=== PATIENT | male | born 1965 | race Caucasian/White ===

== ENCOUNTER 2017-04-01 05:54 | Inpatient (IN) ==
[2017-04-01] MEDS ORDERED: Mag Hydrox/Al Hydrox/Simeth 30 ML UDC PO PRN (06:05)
[2017-04-01] MEDS ORDERED: *HR* LORazepam 1 MG TABLET PO PRN (06:05)
[2017-04-01] MEDS ORDERED: MOM Conc 10 ML UD.LIQ PO PRN (06:05)
[2017-04-01] MEDS ORDERED: traZODone 50 MG TABLET PO PRN (06:05)
[2017-04-01] MEDS ORDERED: Haloperidol Lactate 5 MG/ML VIAL IM PRN (06:05)
[2017-04-01] MEDS ORDERED: *HR* LORazepam 2 MG/ML VIAL IM PRN (06:05)
[2017-04-01] MEDS ORDERED: Acetaminophen 325 MG TABLET PO PRN (06:05)
[2017-04-01] MEDS ORDERED: Loratadine 10 MG TABLET PO PRN (09:12)
[2017-04-01] MEDS: Gabapentin 300 MG CAPSULE PO SCH ×2 (10:00→21:41)
[2017-04-01] MEDS: risperiDONE 1 MG TABLET PO SCH ×2 (10:01→21:41)
--- NOTE | 2017-04-01 10:32 | Psychiatry History & Physical ---
Date of Encounter: 04/01/17 Time of Encounter: 09:30 History of Present Illness Patient Stated Chief Complaint: "I feel depressed and suicidal" Medicare Admission Attestation: For traditional Medicare patients the provided hospital inpatient services are reasonable and necessary and in the case of services not specified as inpatient -only under 42 CFR 419.22 (n), that they are appropriately provided as inpatient services in accordance 42 CFR 412.3. For Critical Access Hospital the patient may reasonably be expected to be discharged or transferred to a hospital within 96 hours after admission to the Critical Access Hospital. Admitted From: Direct Admit Plans for Post Hospital Care: Home History of Present Illness: Mr. Maya is a 51 year old male who is noted to have an extensive history of depression. He reported that he broke up with his girlfriend of almost a year ago and since then been noticing slow and gradual relapse of depressive symptoms which are getting worse with time. He reported that in the last few weeks his depression has gotten worse for point where he is being feeling extremely sad and hopeless helpless a motivated lost interest in pleasurable activities noticing poor energy levels and withdrawn behavior along with recurrent suicidal thoughts and ideations. He was contemplating on overdosing on pills. Since patient was not able to contract for safety and was posing a threat to himself it was decided to hospitalize him at [facility] for safety concerns. Past Med Surg Social Fam HX - Past Medical History Medical history: asthma, GERD, hyperlipidemia, hypertension, seizures - Past Psychiatric History Psychiatric history: Reports: depression, previous psychiatric hospitalization Past psychiatric history details: Patient reported that he been struggling from depression for the last 30 years. He has had 6 or 7 prior psychiatric hospitalizations at various hospitals in [place]. His last hospitalization was in [facility] more than a year ago. [facility] Family psychiatric history: Yes Family Psychiatric History Details: Sisters suffered from depression and committed suicide last year Family History of Suicide: Completed Family Suicide History Details: Patient's sister committed suicide last year - Past Surgical History Surgical History: other - Social History Smoking Status: Never smoker Smokeless Tobacco Status: Yes (Chew) Alcohol use: none Drug use: marijuana Occupational status: disabled Current living situation: Home, With Family Activity Level: Independent ambulation Recent Out of Country Travel Within the Last 8 Weeks: No Exposure or Possible Exposure to Illness During Travel: No Additional social history: Patient was born and raised in [place]. He reported good childhood. Denies any physical or sexual abuse. He is educated to ninth grade. He was in special ed classes. He is single and never been . Currently he is disabled and resides with his sister and her family. He denies any legal issues. - Family History Mother Adopted: [place]: Marsha Kenny Age: 65 Family Member Ethnicity: Non- Living Status: Still Living Hx Family Cardiac Disorders: Yes Hx Family Endocrine Disorder: Yes (Diabetic) Hx Family Musculoskeletal Disorders: Yes Medications & Allergies Benztropine [Cogentin] 1 mg PO BID 02/27/15 [History] Carvedilol 3.125 mg PO BID 02/27/15 [History] Gabapentin [Neurontin] 600 mg PO BID 02/27/15 [History] Paroxetine HCl [Paroxetine] 20 mg PO DAILY 02/27/15 [History] Pravastatin Sodium [Pravachol] 40 mg PO DAILY 02/27/15 [History] RisperiDONE [Risperdal] 2 mg PO BID 04/29/15 [History] Trazodone HCl [TraZODone] 100 mg PO HS 04/29/15 [History] Cetirizine HCl [Zyrtec] 10 mg PO DAILY PRN #0 05/01/15 [Rx] Omeprazole [PriLOSEC] 20 mg PO BIDAC #30 cap 06/27/16 [Rx] Ferrous Sulfate [Ferrous Sulfate] 325 mg PO DAILY 08/11/16 [History] Albuterol Sulfate [Ventolin Hfa] 18 gm IH PRN PRN 04/01/17 [History] 3 Allergy/AdvReac Type Severity Reaction Status Date / Time Penicillins Allergy unknown Verified 01/27/17 20:01 PER PATIENT Review of Systems Psychiatric: Reports: depression, suicidal ideation, anhedonia, difficulty concentrating, hopelessness Mental Status Exam Patient orientation: Yes Person, Yes Time, Yes Place Level of alertness: Alert Patient appearance: Unkempt, Disheveled Behavior: cooperative Psychomotor activity: Slowed Eye contact: Maintains Eye Contact Mood description: Depressed Affect description: flat, dysphoric Speech pattern: Slowed Speech volume: Soft/Quiet Thought process: Linear, Goal Oriented Thought content: Yes Suicidal ideation Perceptual disturbances: No Auditory hallucinations, No Visual hallucinations Attention span: Capable of Focused Attention Memory description: Grossly Intact Patient reliability: Reliable Historian Intelligence estimate: Below Average Judgment: Limited Exam - HEENT Head exam IM: Present: normal inspection Eye exam IM: Present: normal appearance ENT exam IM: Present: normal exam - Neurological Neurological exam IM: Present: CN II-XII intact, normal gait, oriented X3, reflexes normal, no focal deficits, strengths equal and symetr throughout. Absent: motor sensory deficit - Respiratory Respiratory exam IM: Absent: respiratory distress - GI/Abdominal GI/Abdominal exam IM: Present: normal bowel sounds, soft. Absent: mass, tenderness - Extremities Extremities exam IM: Present: normal inspection - Skin Skin exam IM: Present: normal color Results - Vital Signs Vital signs: Temp Pulse Resp BP 97.4 F L 87 16 125/82 04/01/17 09:00 04/01/17 09:00 04/01/17 09:00 04/01/17 09:00 Assessment and Plan (1) Major depressive disorder, recurrent severe without psychotic features Current visit: Yes Status: Acute Plan: Admit inpatient for safety and stabilization, Close observation, Suicide Precautions per unit protocol, Encourage participation in unit milieu, Group Therapy, Monitor sleep, Monitor appetite Additional Plan: We will increase patient's Paxil from 20 mg daily to 30 mg daily for his depression. Risks, benefits, side effects, alternatives discussed w/pt: Yes Plans for Post Hospital Care: Home Estimated Length of Stay (Days): 4
[2017-04-01] MEDS: traZODone 50 MG TABLET PO SCH (21:40)
[2017-04-01] MEDS: hydrOXYzine pamoate 25 MG CAPSULE PO PRN (21:41)
[2017-04-02] MEDS: Gabapentin 300 MG CAPSULE PO SCH ×2 (08:27→20:55)
[2017-04-02] MEDS: risperiDONE 1 MG TABLET PO SCH ×2 (08:27→20:54)
--- NOTE | 2017-04-02 10:33 | Psychiatry Progress Note ---
Date of Encounter: 04/02/17 Time of Encounter: 09:55 Subjective Interval history: Patient seen and interviewed. Started to notice improvement in his mood. Suicidal ideations subsided. He still endorsing some hopeless feelings but working on a safety plan. Patient is active on the unit and is socializing with peers and attending groups. Tolerating meds changes fairly well and denies any side effects. Overall making progress Review of Systems Psychiatric: Reports: depression, hopelessness Objective: Exam Patient orientation: Yes Person, Yes Time, Yes Place Level of alertness: Alert Patient appearance: Unkempt, Disheveled Behavior: calm, cooperative Psychomotor activity: Slowed Eye contact: Maintains Eye Contact Mood description: Depressed Affect description: congruent with mood, full range Speech pattern: Normal rate, Normal rhythm, Normal tone Speech volume: Soft/Quiet Thought process: Roxana Thought content: No Suicidal ideation, No Homicidal ideation, No Overt delusions Perceptual disturbances: No Auditory hallucinations, No Visual hallucinations Judgment: Fair Insight: Partial Results - Vital Signs Vital Signs: Temp Pulse Resp BP 98 F 71 16 130/87 04/02/17 08:55 04/02/17 08:55 04/02/17 08:55 04/02/17 08:55 Assessment and Plan (1) Major depressive disorder, recurrent severe without psychotic features Current visit: Yes Status: Acute Plan: Continue hospitalization, Close observation, Suicide Precautions per unit protocol, Encourage participation in unit milieu, Group Therapy, Monitor sleep, Monitor appetite Additional Plan: Possible discharge tomorrow if stable Risks, benefits, side effects, alternatives discussed w/pt: Yes
[2017-04-02] MEDS: traZODone 50 MG TABLET PO SCH (20:54)
[2017-04-02] MEDS: hydrOXYzine pamoate 25 MG CAPSULE PO PRN (20:55)
[2017-04-03] MEDS: Gabapentin 300 MG CAPSULE PO SCH (07:52)
[2017-04-03] MEDS: risperiDONE 1 MG TABLET PO SCH (07:53)
[2017-04-03 10:11] VITALS: BP 141/76
--- NOTE | 2017-04-03 12:38 | Discharge Summary ---
Date of Encounter: 04/03/17 Time of Encounter: 12:34 Diagnosis - Discharge Diagnosis (1) Major depressive disorder, recurrent severe without psychotic features Status: Acute Medications - Discharge Medications Prescriptions: Paroxetine [Paxil] 30 mg PO DAILY #30 tablet Atorvastatin [Lipitor] 40 mg PO DAILY 04/01/17 [History] Acetaminophen [Tylenol] 650 mg PO Q6HR PRN tablet 04/03/17 [Rx] Albuterol Sulfate [Albuterol Inhaler] 2 puff IH Q6H PRN inhaler 04/03/17 [Rx] Atorvastatin [Lipitor] 40 mg PO QPM tablet 04/03/17 [Rx] Benztropine [Cogentin] 1 mg PO BID tablet 04/03/17 [Rx] Carvedilol [Coreg] 3.125 mg PO BIDWM tablet 04/03/17 [Rx] Ferrous Sulfate 325 mg PO DAILY tablet 04/03/17 [Rx] Gabapentin [Neurontin] 600 mg PO BID capsule 04/03/17 [Rx] Loratadine [Claritin] 10 mg PO DAILY PRN tablet 04/03/17 [Rx] Omeprazole [PriLOSEC] 20 mg PO BIDAC capsule. 04/03/17 [Rx] Paroxetine [Paxil] 30 mg PO DAILY #30 tablet 04/03/17 [Rx] risperiDONE [RisperDAL] 2 mg PO BID tablet 04/03/17 [Rx] traZODone [TraZODone] 100 mg PO HS tablet 04/03/17 [Rx] 3 Allergy/AdvReac Type Severity Reaction Status Date / Time Penicillins Allergy unknown Verified 01/27/17 20:01 PER PATIENT Provider Date of admission: 04/01/17 05:54 Primary care physician: PCP NONE Discharging clinician: Patricia Velazquez Assessment and Plan - Patient/Caregiver Discharge Instructions Activity: resume usual activities as tolerated Diet: regular diet - Follow up Plan Follow up with: NONE,PCP [Primary Care Provider] - Functional capacity at discharge: independent ambulation Overall status at discharge: Stable Disposition: Home, Self-Care Hospital Course Hospital course: Mr. Maya is a 51 year old male who was admitted secondary to SI. His Paxil was increased with good clinical effect. Today client is denying SI and reports he wants to go home. According to documentation, the psychiatrist who saw him yesterday thought client might be ready to go today. According to client he was stressed out "by my exes," but states today he feels fine and "I was talking out of my mind for no reason" when he came in. Denies any further SI. Linked with services. Will be set up with appointments prior to discharge. Lives with sister and mother lives next door so he has built in family support. Has back pain that he feels is under treated but he plans to follow up with his PCP for referral to a pain specialist. 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 Fairly concrete but understands how to access mental health services. Client reports he would not hesitate to return to the hospital if he felt suicidal again. - Time Spent with Patient Total time spent providing and/or coordinating discharge services: Quality - Multiple Antipsychotics Patient discharged on 2 or more antipsychotic medications: No Procedures - Procedures Procedures: Medication Management, Crisis Stabilization, Supportive Therapy, Group Therapy Mental Status Exam - Mental Status Exam Patient orientation: Yes Person, Yes Time, Yes Place Level of alertness: Alert Patient appearance: Disheveled Behavior: calm Psychomotor activity: Normal Eye contact: Maintains Eye Contact Mood description: Euthymic/stable Affect description: congruent with mood Speech pattern: Normal rate, Normal rhythm, Normal tone Speech Volume: Normal Thought process: Goal Oriented Thought Content: No Suicidal ideation, No Homicidal ideation, No Overt delusions Perceptual Disturbances: No Auditory hallucinations, No Visual hallucinations Judgment: Limited Insight: Partial
== END 2017-04-03 14:36 | disposition home or self-care (01) | DRG 751 ==
LOC: 1ANU 05:54
PROVIDERS: ADMIT Psychiatry & Neurology Psychiatry; ATTEND Psychiatry & Neurology Psychiatry

== ENCOUNTER 2017-09-29 00:36 | Inpatient (IN) ==
[2017-09-29] MEDS ORDERED: Acetaminophen 325 MG TABLET PO PRN (02:44)
[2017-09-29] MEDS ORDERED: *HR* LORazepam 2 MG/ML VIAL IM PRN (02:44)
[2017-09-29] MEDS ORDERED: hydrOXYzine pamoate 25 MG CAPSULE PO PRN (02:44)
[2017-09-29] MEDS ORDERED: MOM Conc 10 ML UD.LIQ PO PRN (02:44)
[2017-09-29] MEDS ORDERED: Mag Hydrox/Al Hydrox/Simeth 30 ML UDC PO PRN (02:44)
[2017-09-29] MEDS ORDERED: *HR* LORazepam 1 MG TABLET PO PRN (02:44)
[2017-09-29] MEDS ORDERED: Haloperidol Lactate 5 MG/ML VIAL IM PRN (02:44)
--- NOTE | 2017-09-29 20:12 | Psychiatry History & Physical ---
Date of Encounter: 09/29/17 Time of Encounter: 19:30 History of Present Illness Patient Stated Chief Complaint: I had thoughts to harm myself Medicare Admission Attestation: For traditional Medicare patients the provided hospital inpatient services are reasonable and necessary and in the case of services not specified as inpatient -only under 42 CFR 419.22 (n), that they are appropriately provided as inpatient services in accordance 42 CFR 412.3. For Critical Access Hospital the patient may reasonably be expected to be discharged or transferred to a hospital within 96 hours after admission to the Critical Access Hospital. Admitted From: Home Plans for Post Hospital Care: Home History of Present Illness: Pt is a 51 yo ,, male, never , with no children, 2 dogs, ( Dez and Dalton) who presents for depression and anxiety . Pt noted he currently lives in [place] with my sister and my niece. Pt noted recent exacerbation of depression. Pt states when I came in I thought I wanted to hurt myself. Pt noted I came in because I needed some help I feel much better now. I feel safe and comfortable on the unit. Pt denied any side effects to current medications. Pt was in agreement with current treatment plan. Pt noted that he is doing alright today. Pt noted he slept 6 hours broken night. Pt noted his appetite is its down. Pt rated his depression a 1, on a scale of zero to ten with ten being the worst and zero being none. Pt rate his anxiety a 1, on the same scale. Pt denied any auditory or visual hallucinations. Pt denied any current thoughts to harm himself or anyone else. Pt noted that his mother is alive and lives next door to them. PT noted he hasn t seen his dad since he was 21. Pt noted that his highest level of education is 8th. Pt noted he is currently unemployed and receives SSDI. Pt denied any inpt psychiatric hospitalizations. Pt denied any previous suicide attempts. Pt denied any family hx of suicides. PT denied any family mental health hx. 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 Pt denied HEP C or HIV. No TD noted, AIMS=0 Tobacco: snuff can every [address]: Marijuana every few days Alcohol: Sober for 2 years Caffiene: 2-3 per day MSE: Alert and Oriented x3 Appearance: appropriately groomed dressed in civilian attire Behavior: Polite, friendly, courteous Speech: fluent, normal tone, normal rate Mood: better but I am depression Affect: mood congruent Thought content: no HI noted, no SI noted, no delusions noted Psychosis: none noted, currently does not appear to be responding to internal stimuli. Thought Process: linear logical, goal directed Judgment: fair. Insight: fair. Assessment/Plan 1.Interval hx 2.Continue current medications 3.Review current labs 4.Pt had an opportunity to ask questions and discuss current treatment plan. 5.Supportive therapy was provided 6.Pt encouraged to consider group or individual therapy 7.Pt was in agreement with treatment plan. 8.Pt was educated on the risks benefits and side effects of current medications. Past Med Surg Social Fam HX - Past Medical History Medical history: asthma, GERD, hyperlipidemia, hypertension, seizures - Past Psychiatric History Psychiatric history: Reports: depression, prior suicide attempt, previous psychiatric hospitalization Family psychiatric history: Yes Family History of Suicide: None - Past Surgical History Surgical History: other - Social History Smoking Status: Never smoker Smokeless Tobacco Status: Yes Alcohol use: none Drug use: marijuana - Family History Mother Adopted: No Family Member Ethnicity: Non- Living Status: Still Living Hx Family Cardiac Disorders: Yes Hx Family Endocrine Disorder: Yes (Diabetic) Medications & Allergies Albuterol Sulfate [Albuterol Inhaler] 2 puff IH Q6H PRN inhaler 04/03/17 [Rx] Atorvastatin [Lipitor] 40 mg PO QPM tablet 04/03/17 [Rx] Carvedilol [Coreg] 3.125 mg PO BIDWM tablet 04/03/17 [Rx] Ferrous Sulfate 325 mg PO DAILY tablet 04/03/17 [Rx] risperiDONE [RisperDAL] 2 mg PO BID tablet 04/03/17 [Rx] traZODone [TraZODone] 100 mg PO HS tablet 04/03/17 [Rx] Benztropine Mesylate 1 mg PO BID 06/11/17 [History] Cetirizine HCl [All Day Allergy] 10 mg PO DAILY PRN 06/11/17 [History] Fluticasone Propionate Nasal [Flonase] 1 spray NS DAILY 06/11/17 [History] Omeprazole [PriLOSEC] 20 mg PO DAILY 06/11/17 [History] Paroxetine HCl [Paxil] 20 mg PO DAILY 06/11/17 [History] Pravastatin Sodium [Pravachol] 40 mg PO DAILY 06/11/17 [History] 3 Allergy/AdvReac Type Severity Reaction Status Date / Time Penicillins Allergy unknown Verified 06/11/17 21:12 PER PATIENT Review of Systems Constitutional: Denies: fever, chills, weakness, weight change Eyes: Denies: eye pain, vision change Ears, Nose, Throat: Denies: ear pain, throat pain, dental pain, hearing loss, congestion Cardiovascular: Denies: chest pain, palpitations, dyspnea on exertion Respiratory: Denies: cough, dyspnea, wheezes Gastrointestinal: Denies: abdominal pain, nausea, vomiting, diarrhea, constipation Genitourinary male: Denies: urgency, dysuria, frequency, genital lesions Musculoskeletal: Denies: joint swelling, joint pain Integumentary: Denies: rash, lesions, pruritus Neurological: Denies: headache, weakness, numbness, memory loss Psychiatric: Reports: depression, anxiety Endocrine: Denies: fatigue, heat or cold intolerance Hematologic/Lymphatic: Denies: easy bruising, lymphadenopathy Allergic/Immunologic: Denies: urticaria, itchy eyes Exam - HEENT Head exam IM: Present: atraumatic Eye exam IM: Present: EOMI, normal appearance, PERRL ENT exam IM: Present: normal exam - Neurological Neurological exam: Present: CN II-XII intact - Respiratory Respiratory exam IM: Present: CTAB - GI/Abdominal GI/Abdominal exam IM: Present: normal bowel sounds, soft. Absent: tenderness - Extremities Extremities exam IM: Present: full ROM - Skin Skin exam IM: Present: dry, warm - Constitutional Vitals: Temp Pulse Resp BP 97.9 F 88 18 113/75 09/29/17 09:00 09/29/17 09:00 09/29/17 09:00 09/29/17 09:00 General appearance: age & developmentally appropriate, well-groomed, well- nourished - Musculoskeletal Gait: normal Station: relaxed Strength & Tone: normal for patient - Psychiatric Patient Orientation: Yes Person, Yes Time, Yes Place Level of alertness: Alert Behavior: calm, cooperative Psychomotor activity: Slowed Eye Contact: Maintains Eye Contact Mood Description: Euthymic/stable, Depressed Affect description: congruent with mood, full range Speech Volume: Normal Speech pattern: normal rate, normal rhythm, normal tone, fluent, spontaneous Language & Vocabulary: consistent with education Thought Process: Logical, Linear, Goal Oriented Thought Content: Yes Suicidal ideation, No Homicidal ideation, No Overt delusions Perceptual Disturbances: No Auditory hallucinations, No Visual hallucinations Attention Span Ability: Capable of Focused Attention Memory Description: Grossly Intact Patient Reliability: Reliable Historian Fund of knowledge: Yes abstraction ability, Yes average, Yes aware of current events Intelligence Estimate: Average Judgment: Limited Insight: Partial Assessment and Plan (1) Major depressive disorder, recurrent severe without psychotic features Current visit: Yes Status: Acute Plan: Admit inpatient for safety and stabilization Risks, benefits, side effects, alternatives discussed w/pt: Yes Patient agreeable to treatment: Yes Plans for Post Hospital Care: Home (2) Suicidal ideation Current visit: Yes Status: Acute Plan: Admit inpatient for safety and stabilization Risks, benefits, side effects, alternatives discussed w/pt: Yes Patient agreeable to treatment: Yes Plans for Post Hospital Care: Home
[2017-09-29] MEDS ORDERED: Loratadine 10 MG TABLET PO PRN (20:30)
[2017-09-29] MEDS: risperiDONE 1 MG TABLET PO SCH (22:32)
[2017-09-29] MEDS: traZODone 50 MG TABLET PO PRN (23:39)
[2017-09-30] MEDS: Fluticasone Propionate Nasal 50 MCG/SPRAY BOTTLE NS SCH (10:07)
[2017-09-30] MEDS: risperiDONE 1 MG TABLET PO SCH ×2 (10:07→21:40)
--- NOTE | 2017-09-30 14:53 | Psychiatry Progress Note ---
Date of Encounter: 09/30/17 Time of Encounter: 11:00 Subjective Interval history: Patient is a 51y/o male, single, lives with sister and hr kids admitted for worsening depression, anxiety and SI. Patient was discussed on rounds this morning by a multidisciplinary treatment team. There were no reported behavioral issues or incident overnight. He was seen this morning in the office. He was calm, cooperative and well related. He reported compliance with his medications and denied any side effects. He reported feeling much better since his admission on the unit and rated both his depression and anxiety 4/10. He denied any suicidal ideations or problems with his sleep or appetite. On review of symptoms, he denied any mood or psychotic symptoms including AH/VH/SH/HI. Patient will benefit from additional hospitalization to optimize stabilization. Review of Systems Constitutional: Denies: fever, chills, weakness, weight change Eyes: Denies: eye pain, vision change Ears, Nose, Throat: Denies: ear pain, throat pain, dental pain, hearing loss, congestion Cardiovascular: Denies: chest pain, palpitations, dyspnea on exertion Respiratory: Denies: cough, dyspnea, wheezes Gastrointestinal: Denies: abdominal pain, nausea, vomiting, diarrhea, constipation Musculoskeletal: Denies: joint swelling, joint pain Neurological: Denies: headache, weakness, numbness, memory loss Psychiatric: Reports: depression, anxiety Results - Vital Signs Vital Signs: Temp Pulse Resp BP 97.8 F 91 20 138/89 09/30/17 09:00 09/30/17 09:00 09/30/17 09:00 09/30/17 09:00 Assessment and Plan (1) Major depressive disorder, recurrent severe without psychotic features Current visit: Yes Status: Acute Plan: Continue hospitalization Risks, benefits, side effects, alternatives discussed w/pt: Yes Patient agreeable to treatment: Yes (2) Anxiety disorder Current visit: Yes Status: Acute Plan: Continue hospitalization Qualifiers: Anxiety disorder type: unspecified anxiety disorder Qualified Code(s): F41.9 - Anxiety disorder, unspecified Consult Discharge Plan - Plan [facility] 9:30 am (You will resume group every Monday with Gail from 10:00 AM to 1:00 PM, and group every Monday with Nadiya from 9:00 AM to noon. You will also see Mitzi Fulton for outpatient psychiatric assessment and medication management services on 2017 at 9:30 AM. [facility] Transportation Services will provide transportation back and forth to all appointments.) Psychiatry Exam - Constitutional Vitals: Temp Pulse Resp BP 97.8 F 91 20 138/89 09/30/17 09:00 09/30/17 09:00 09/30/17 09:00 09/30/17 09:00 General appearance: age & developmentally appropriate - Musculoskeletal Gait: normal Station: other Strength & Tone: normal for patient - Psychiatric Patient Orientation: Yes Person, Yes Time, Yes Place, Yes Circumstance Level of alertness: Alert Behavior: calm, cooperative Psychomotor activity: Normal Eye Contact: Maintains Eye Contact Mood Description: Depressed Affect description: full range Speech Volume: Normal Speech pattern: normal rate, normal rhythm, normal tone, fluent, spontaneous Language & Vocabulary: consistent with education Thought Process: Logical, Goal Oriented Thought Content: No Suicidal ideation, No Homicidal ideation, No Overt delusions Perceptual Disturbances: Yes Reacting to internal stimuli Attention Span Ability: Capable of Focused Attention Memory Description: Grossly Intact Patient Reliability: Reliable Historian Fund of knowledge: Yes average Intelligence Estimate: Average Judgment: Limited Insight: Partial
[2017-09-30] MEDS: NON-FORMULARY MEDICATION 1 EACH EACH (Pravastatin Sodium [Pravachol] 40 MG) PO SCH (16:08)
[2017-09-30] MEDS: traZODone 50 MG TABLET PO PRN (23:18)
[2017-10-01] MEDS: risperiDONE 1 MG TABLET PO SCH ×2 (08:46→21:17)
[2017-10-01] MEDS: Fluticasone Propionate Nasal 50 MCG/SPRAY BOTTLE NS SCH (08:47)
--- NOTE | 2017-10-01 11:48 | Psychiatry Progress Note ---
Date of Encounter: 10/01/17 Time of Encounter: 11:00 Subjective Interval history: Identifying Data: Patient is a 51y/o male, single, lives with sister and hr kids admitted for worsening depression, anxiety and SI. Interval Hx: Patient was discussed on rounds this morning and seen this in the office for his assessment, There were no reported behavioral issues or incident overnight. Patient slept for about 8hrs per nursing reports. He was calm, cooperative and well related on presentation. He reported compliance with his medications and denied any side effects. He reported doing well and at his baseline rating his depression and anxiety 0/10. He reported he needed to go home to take care of his dog who is currently in the care of his sister.. He denied any suicidal and homicidal ideations. He is sleeping and eating well and reported no specific complaints. On review of symptoms, he denied any mood or psychotic symptoms including AH/VH/SH/HI. Patient is currently at baseline and can be discharged tomorrow if he remains stabilized. Review of Systems Constitutional: Denies: fever, chills, weakness, weight change Eyes: Denies: eye pain, vision change Ears, Nose, Throat: Denies: ear pain, throat pain, dental pain, hearing loss, congestion Cardiovascular: Denies: chest pain, palpitations, dyspnea on exertion Respiratory: Denies: cough, dyspnea, wheezes Gastrointestinal: Denies: abdominal pain, nausea, vomiting, diarrhea, constipation Musculoskeletal: Denies: joint swelling, joint pain Neurological: Denies: headache, weakness, numbness, memory loss Results - Vital Signs Vital Signs: Temp Pulse Resp BP 97.7 F 88 16 112/77 09/30/17 20:15 10/01/17 08:25 10/01/17 08:25 10/01/17 08:25 Assessment and Plan (1) Major depressive disorder, recurrent severe without psychotic features Current visit: Yes Status: Acute Risks, benefits, side effects, alternatives discussed w/pt: Yes Patient agreeable to treatment: Yes (2) Anxiety disorder Current visit: Yes Status: Acute Qualifiers: Anxiety disorder type: unspecified anxiety disorder Qualified Code(s): F41.9 - Anxiety disorder, unspecified Consult Discharge Plan - [facility] 9:30 am (You will resume group every Monday with Gail from 10:00 AM to 1:00 PM, and group every Monday with Nadiya from 9:00 AM to noon. You will also see Mitzi Hooper for outpatient psychiatric assessment and medication management services on 2017 at 9:30 AM. [facility] Transportation Services will provide transportation back and forth to all appointments.) Psychiatry Exam - Constitutional Vitals: Temp Pulse Resp BP 97.7 F 88 16 112/77 09/30/17 20:15 10/01/17 08:25 10/01/17 08:25 10/01/17 08:25 General appearance: age & developmentally appropriate, well-groomed, well- nourished - Musculoskeletal Gait: normal Station: relaxed Strength & Tone: normal for patient - Psychiatric Patient Orientation: Yes Person, Yes Time, Yes Place Level of alertness: Alert Behavior: calm, cooperative Psychomotor activity: Normal Eye Contact: Maintains Eye Contact Mood Description: Euthymic/stable Affect description: congruent with mood, full range Speech Volume: Normal Speech pattern: normal rate, normal rhythm, normal tone, fluent, spontaneous Language & Vocabulary: consistent with education Thought Process: Linear, Goal Oriented Thought Content: No Suicidal ideation, No Homicidal ideation, No Overt delusions Perceptual Disturbances: No Auditory hallucinations, No Visual hallucinations Attention Span Ability: Capable of Focused Attention Memory Description: Grossly Intact Patient Reliability: Reliable Historian Fund of knowledge: Yes abstraction ability, Yes aware of current events Intelligence Estimate: Average Judgment: Limited Insight: Partial
[2017-10-01] MEDS: traZODone 50 MG TABLET PO PRN (21:17)
[2017-10-02] MEDS: risperiDONE 1 MG TABLET PO SCH (08:42)
[2017-10-02] MEDS: Fluticasone Propionate Nasal 50 MCG/SPRAY BOTTLE NS SCH (08:43)
[2017-10-02 10:46] VITALS: BP 129/84
--- NOTE | 2017-10-02 11:34 | Discharge Summary ---
Date of Encounter: 10/02/17 Time of Encounter: 11:25 Diagnosis - Discharge Diagnosis (1) Anxiety associated with depression Priority: Secondary Status: Acute (2) Anemia Status: Chronic Qualifiers: Anemia type: iron deficiency Iron deficiency anemia type: chronic blood loss Qualified Code(s): D50.0 - Iron deficiency anemia secondary to blood loss (chronic) (3) GI bleed due to NSAIDs Status: Suspected (4) Conjunctivitis Status: Resolved Qualifiers: Acute conjunctivitis type: unspecified Laterality: bilateral Qualified Code(s): H10.33 - Unspecified acute conjunctivitis, bilateral (5) Major depressive disorder, recurrent severe without psychotic features Priority: Primary Status: Acute (6) Suicidal ideations Priority: Secondary Status: Resolved Medications - Discharge Medications Prescriptions: Benztropine Mesylate 1 mg PO BID 30 Days #60 tablet hydrOXYzine pamoate [HydrOXYzine Pamoate] 25 mg PO TID PRN 30 Days #30 capsule PRN Reason: Anxiety Paroxetine [Paxil] 40 mg PO DAILY 30 Days #30 tablet risperiDONE [RisperDAL] 2 mg PO BID 30 Days #60 tablet traZODone [TraZODone] 100 mg PO HS 30 Days #30 tablet Albuterol Sulfate [Albuterol Inhaler] 2 puff IH Q6H PRN inhaler 04/03/17 [Rx] Atorvastatin [Lipitor] 40 mg PO QPM tablet 04/03/17 [Rx] Carvedilol [Coreg] 3.125 mg PO BIDWM tablet 04/03/17 [Rx] Ferrous Sulfate 325 mg PO DAILY tablet 04/03/17 [Rx] Cetirizine HCl [All Day Allergy] 10 mg PO DAILY PRN 06/11/17 [History] Fluticasone Propionate Nasal [Flonase] 1 spray NS DAILY 06/11/17 [History] Omeprazole [PriLOSEC] 20 mg PO DAILY 06/11/17 [History] Paroxetine HCl [Paxil] 20 mg PO DAILY 06/11/17 [History] Pravastatin Sodium [Pravachol] 40 mg PO DAILY 06/11/17 [History] Benztropine Mesylate 1 mg PO BID 30 Days #60 tablet 10/02/17 [Rx] Paroxetine [Paxil] 40 mg PO DAILY 30 Days #30 tablet 10/02/17 [Rx] hydrOXYzine pamoate [HydrOXYzine Pamoate] 25 mg PO TID PRN 30 Days #30 capsule 10/02/17 [Rx] risperiDONE [RisperDAL] 2 mg PO BID 30 Days #60 tablet 10/02/17 [Rx] traZODone [TraZODone] 100 mg PO HS 30 Days #30 tablet 10/02/17 [Rx] 3 Allergy/AdvReac Type Severity Reaction Status Date / Time Penicillins Allergy unknown Verified 06/11/17 21:12 PER PATIENT Provider Date of admission: 09/29/17 01:58 Primary care physician: PCP NONE Discharging clinician: Marino Moscoso Psychiatry Exam - Constitutional Vitals: Temp Pulse Resp BP 98.6 F 96 16 129/84 10/02/17 10:44 10/02/17 10:44 10/02/17 10:44 10/02/17 10:44 General appearance: age & developmentally appropriate, well-groomed, well- nourished, unkempt - Musculoskeletal Gait: normal Station: relaxed Strength & Tone: normal for patient - Psychiatric Patient Orientation: Yes Person, Yes Time, Yes Place Level of alertness: Alert Behavior: calm, cooperative Psychomotor activity: Normal Eye Contact: Maintains Eye Contact Mood Description: Euthymic/stable Affect description: congruent with mood, full range Speech Volume: Normal Speech pattern: normal rate, normal rhythm, normal tone, fluent, spontaneous Language & Vocabulary: consistent with education Thought Process: Linear, Goal Oriented Thought Content: No Suicidal ideation, No Homicidal ideation, No Overt delusions Perceptual Disturbances: No Auditory hallucinations, No Visual hallucinations Attention Span Ability: Capable of Focused Attention Memory Description: Grossly Intact Patient Reliability: Reliable Historian Fund of knowledge: Yes abstraction ability, Yes aware of current events Intelligence Estimate: Below Average Judgment: Limited Insight: Partial Hospital Course Hospital course: Mr. Maya is a 51 year old male During the patient's hospital stay. He was admitted and participated in groups and individual therapies. The patient had medication adjusted on Paxil was increased. The patient remained on his other outpatient medicines and he was engaged in current treatment. He reported him red blood at the time of a bowel movement but this was not observed. The patient does have a history of anemia and blood loss due to nonsteroidal anti-inflammatories. He is on supplemental iron. The patient and tolerated the medication adjustment. He indicated an interest in returning home. Conversation with the patient's mother indicates that he lives in a safe environment. . The patient was engaged in group therapy on an outpatient basis. The patient was encouraged to consult his primary care provider regarding status of his anemia he reported no suicidal ideation homicidal ideation psychosis or severe mood disturbance at the time of discharge she reported no significant side effects to medications or prescribed - Time Spent with Patient Total time spent providing and/or coordinating discharge services: Less than 30 minutes Assessment and Plan - Patient/Caregiver Discharge Instructions Activity: resume usual activities as tolerated Diet: regular diet - Follow up Plan Follow up with: [facility] - 10/30/17 9:30 am (You will resume group every Monday with Gail from 10:00 AM to 1:00 PM, and group every Monday with Nadiya from 9:00 AM to noon. You will also see Mitzi Hooper for outpatient psychiatric assessment and medication management services on 2017 at 9:30 AM. [facility] Transportation Services will provide transportation back and forth to all appointments.) Functional capacity at discharge: independent ambulation Overall status at discharge: Stable Disposition: Home, Self-Care Quality - Multiple Antipsychotics Patient discharged on 2 or more antipsychotic medications: No Procedures - Procedures Procedures: Medication Management, Crisis Stabilization, Supportive Therapy, Group Therapy, Psychoeducational Therapy
== END 2017-10-02 15:10 | disposition home or self-care (01) | DRG 751 ==
LOC: 1ANU 01:58 → SUATTDRO 01:58
PROVIDERS: ADMIT General Practice; ATTEND Psychiatry & Neurology Forensic Psychiatry

== ENCOUNTER 2019-08-08 18:47 | Inpatient (IN) ==
[2019-08-08] MEDS ORDERED: *HR* LORazepam 1 MG TABLET PO PRN (20:47)
[2019-08-08] MEDS ORDERED: *HR* LORazepam 2 MG/ML VIAL IM PRN (20:47)
[2019-08-08] MEDS ORDERED: haloperidoL 5 MG TABLET PO PRN (20:47)
[2019-08-08] MEDS ORDERED: MOM Conc 10 ML UD.LIQ PO PRN (20:47)
[2019-08-08] MEDS ORDERED: Mag Hydrox/Al Hydrox/Simeth 30 ML UDC PO PRN (20:47)
[2019-08-08] MEDS ORDERED: Haloperidol Lactate 5 MG/ML VIAL IM PRN (20:47)
[2019-08-08] MEDS: hydrOXYzine pamoate 25 MG CAPSULE PO PRN (21:33)
[2019-08-08] MEDS: traZODone 50 MG TABLET PO PRN (21:33)
[2019-08-09] MEDS: PARoxetine 30 MG TABLET PO SCH (11:06)
[2019-08-09] MEDS: risperiDONE 0.25 MG TABLET PO SCH ×2 (11:06→20:32)
[2019-08-09] MEDS: Fluticasone Propionate Nasal 50 MCG/SPRAY BOTTLE NS SCH (11:07)
[2019-08-09] MEDS: Loratadine 10 MG TABLET PO SCH (11:07)
[2019-08-09] MEDS: Gabapentin 300 MG CAPSULE PO SCH ×2 (11:07→20:32)
[2019-08-09] MEDS: carvediloL 6.25 MG TABLET PO SCH (17:32)
[2019-08-09] MEDS: hydrOXYzine pamoate 25 MG CAPSULE PO PRN (20:32)
[2019-08-09] MEDS: Acetaminophen 325 MG TABLET PO PRN (20:32)
[2019-08-09] MEDS: traZODone 50 MG TABLET PO PRN (20:32)
[2019-08-10] MEDS: risperiDONE 0.25 MG TABLET PO SCH ×2 (09:28→20:23)
[2019-08-10] MEDS: Gabapentin 300 MG CAPSULE PO SCH ×2 (09:29→20:23)
[2019-08-10] MEDS: carvediloL 6.25 MG TABLET PO SCH ×2 (09:29→17:52)
[2019-08-10] MEDS: PARoxetine 30 MG TABLET PO SCH (09:29)
[2019-08-10] MEDS: Loratadine 10 MG TABLET PO SCH (09:30)
[2019-08-10] MEDS: Fluticasone Propionate Nasal 50 MCG/SPRAY BOTTLE NS SCH (09:30)
[2019-08-10] MEDS: hydrOXYzine pamoate 25 MG CAPSULE PO PRN (20:23)
[2019-08-10] MEDS: traZODone 50 MG TABLET PO PRN (20:23)
[2019-08-10] MEDS: Acetaminophen 325 MG TABLET PO PRN (20:24)
[2019-08-11] MEDS: Acetaminophen 325 MG TABLET PO PRN ×3 (04:21→20:34)
[2019-08-11] MEDS: risperiDONE 0.25 MG TABLET PO SCH ×2 (09:06→20:34)
[2019-08-11] MEDS: Loratadine 10 MG TABLET PO SCH (09:06)
[2019-08-11] MEDS: Gabapentin 300 MG CAPSULE PO SCH ×2 (09:06→20:34)
[2019-08-11] MEDS: carvediloL 6.25 MG TABLET PO SCH ×2 (09:06→17:51)
[2019-08-11] MEDS: PARoxetine 30 MG TABLET PO SCH (09:07)
[2019-08-11] MEDS: Fluticasone Propionate Nasal 50 MCG/SPRAY BOTTLE NS SCH (09:07)
[2019-08-11] MEDS: hydrOXYzine pamoate 25 MG CAPSULE PO PRN (20:34)
[2019-08-11] MEDS: traZODone 50 MG TABLET PO PRN (20:34)
[2019-08-12] MEDS: risperiDONE 0.25 MG TABLET PO SCH (08:26)
[2019-08-12] MEDS: Fluticasone Propionate Nasal 50 MCG/SPRAY BOTTLE NS SCH (08:35)
[2019-08-12] MEDS: Loratadine 10 MG TABLET PO SCH (08:35)
[2019-08-12] MEDS: PARoxetine 30 MG TABLET PO SCH (08:35)
[2019-08-12] MEDS: Gabapentin 300 MG CAPSULE PO SCH (08:35)
[2019-08-12] MEDS: carvediloL 6.25 MG TABLET PO SCH (08:39)
[2019-08-12 09:15] VITALS: BP 117/81
== END 2019-08-12 10:20 | disposition home or self-care (01) ==
LOC: EMEROOARM 18:47 → 1ANU 20:27
PROVIDERS: ADMIT Psychiatry & Neurology Psychiatry; ATTEND Psychiatry & Neurology Psychiatry

== ENCOUNTER 2020-03-04 11:18 | Inpatient (IN) ==
[2020-03-04] MEDS ORDERED: *HR* LORazepam 2 MG/ML VIAL IM PRN (13:33)
[2020-03-04] MEDS ORDERED: haloperidoL 5 MG TABLET PO PRN (13:33)
[2020-03-04] MEDS ORDERED: Mag Hydrox/Al Hydrox/Simeth 30 ML UDC PO PRN (13:33)
[2020-03-04] MEDS ORDERED: hydrOXYzine pamoate 25 MG CAPSULE PO PRN (13:33)
[2020-03-04] MEDS ORDERED: traZODone 50 MG TABLET PO PRN (13:33)
[2020-03-04] MEDS ORDERED: Haloperidol Lactate 5 MG/ML VIAL IM PRN (13:33)
[2020-03-04] MEDS ORDERED: *HR* LORazepam 1 MG TABLET PO PRN (13:33)
[2020-03-04] MEDS ORDERED: Acetaminophen 325 MG TABLET PO PRN (13:33)
[2020-03-04] MEDS ORDERED: Nicotine 2 MG GUM BC PRN (13:33)
[2020-03-04] MEDS ORDERED: MOM Conc 10 ML UD.LIQ PO PRN (13:33)
[2020-03-04] MEDS: Fluticasone Propionate Nasal 50 MCG/SPRAY BOTTLE NS SCH (17:05)
[2020-03-04] MEDS: carvediloL 6.25 MG TABLET PO SCH (17:14)
[2020-03-04] MEDS: risperiDONE 0.25 MG TABLET PO SCH (21:44)
[2020-03-04] MEDS: Gabapentin 300 MG CAPSULE PO SCH (21:45)
[2020-03-05] MEDS: Gabapentin 300 MG CAPSULE PO SCH ×2 (08:16→20:20)
[2020-03-05] MEDS: Loratadine 10 MG TABLET PO SCH (08:16)
[2020-03-05] MEDS: carvediloL 6.25 MG TABLET PO SCH ×2 (08:18→16:42)
[2020-03-05] MEDS: risperiDONE 0.25 MG TABLET PO SCH ×2 (08:18→20:21)
[2020-03-05] MEDS: Fluticasone Propionate Nasal 50 MCG/SPRAY BOTTLE NS SCH (08:20)
[2020-03-06 09:02] VITALS: BP 146/97
[2020-03-06] MEDS: Gabapentin 300 MG CAPSULE PO SCH (10:03)
[2020-03-06] MEDS: risperiDONE 0.25 MG TABLET PO SCH (10:04)
[2020-03-06] MEDS: carvediloL 6.25 MG TABLET PO SCH (10:05)
[2020-03-06] MEDS: Loratadine 10 MG TABLET PO SCH (10:05)
[2020-03-06] MEDS: Fluticasone Propionate Nasal 50 MCG/SPRAY BOTTLE NS SCH (10:06)
== END 2020-03-06 13:50 | disposition home or self-care (01) | DRG 751 ==
LOC: EMEROOARM 11:18 → 1ANU 13:26
PROVIDERS: ADMIT Psychiatry & Neurology Forensic Psychiatry; ATTEND Psychiatry & Neurology Forensic Psychiatry

== ENCOUNTER 2020-06-29 16:45 | Inpatient (IN) ==
[2020-06-29] MEDS ORDERED: MOM Conc 10 ML UD.LIQ PO PRN (18:57)
[2020-06-29] MEDS ORDERED: *HR* LORazepam 2 MG/ML VIAL IM PRN (18:57)
[2020-06-29] MEDS ORDERED: *HR* LORazepam 1 MG TABLET PO PRN (18:57)
[2020-06-29] MEDS ORDERED: Haloperidol Lactate 5 MG/ML VIAL IM PRN (18:57)
[2020-06-29] MEDS ORDERED: haloperidoL 5 MG TABLET PO PRN (18:57)
[2020-06-29] MEDS ORDERED: Mag Hydrox/Al Hydrox/Simeth 30 ML UDC PO PRN (18:57)
[2020-06-29] MEDS: Nicotine 21 MG PATCH.TD24 TD SCH (21:27)
[2020-06-29] MEDS: traZODone 50 MG TABLET PO PRN (22:19)
[2020-06-29] MEDS: hydrOXYzine pamoate 25 MG CAPSULE PO PRN (22:20)
[2020-06-29] MEDS: Acetaminophen 325 MG TABLET PO PRN (22:20)
[2020-06-30] MEDS: Nicotine 21 MG PATCH.TD24 TD SCH (10:15)
[2020-06-30] MEDS: hydrOXYzine pamoate 25 MG CAPSULE PO PRN (16:34)
[2020-06-30] MEDS: carvediloL 6.25 MG TABLET PO SCH (16:35)
[2020-06-30] MEDS: risperiDONE 0.25 MG TABLET PO SCH (19:51)
[2020-06-30] MEDS: Acetaminophen 325 MG TABLET PO PRN (19:52)
[2020-06-30] MEDS: traZODone 50 MG TABLET PO PRN (19:52)
[2020-06-30] MEDS: Gabapentin 300 MG CAPSULE PO SCH (19:52)
[2020-07-01] MEDS: Gabapentin 300 MG CAPSULE PO SCH (08:51)
[2020-07-01] MEDS: risperiDONE 0.25 MG TABLET PO SCH (08:52)
[2020-07-01] MEDS: carvediloL 6.25 MG TABLET PO SCH (08:53)
[2020-07-01] MEDS: Nicotine 21 MG PATCH.TD24 TD SCH (08:54)
[2020-07-01] MEDS ORDERED: Loratadine 10 MG TABLET PO SCH (09:00)
[2020-07-01] MEDS ORDERED: Fluticasone Propionate Nasal 50 MCG/SPRAY BOTTLE NS SCH (09:00)
[2020-07-01 09:08] VITALS: BP 123/92
[2020-07-01] MEDS ORDERED: FLU Vac QV 20-21 (6Month+)/PF 0.5 ML SYRINGE IM ONE (12:05)
[2020-07-01] MEDS: hydrOXYzine pamoate 25 MG CAPSULE PO PRN (12:31)
== END 2020-07-01 14:15 | disposition home or self-care (01) | DRG 751 ==
LOC: EMEROOARM 16:45 → 1ANU 20:24
PROVIDERS: ADMIT Psychiatry & Neurology Psychiatry; ATTEND Psychiatry & Neurology Psychiatry

== ENCOUNTER 2020-10-13 15:19 | Inpatient (IN) ==
[2020-10-13 15:46] LABS: Bilirubin,Urine Negative (Negative); Blood,Urine Negative (Negative); Clarity,Urine Clear (Clear); Color,Urine Colorless (Yellow); Glucose,Urine (UA) Normal (Normal); Ketones,Urine Negative (Negative); Leukocyte Esterase,Urine Negative (Negative); Nitrite,Urine Negative (Negative); PH,Urine 6.5 pH Units (5.0-8.0); Protein,Urine Negative (Neg-Trace); Specific Gravity,Urine 1.008 (1.010-1.025); Urobilinogen,Urine Normal (Normal)
[2020-10-13 16:03] LABS: Basophils # 0.1 K/mcL (0.0-0.2); Basophils % 0.7 %; Eosinophils # 0.2 K/mcL (0.0-0.6); Eosinophils % 2.6 %; Hematocrit 50.1 % (37.5-50.1); Hemoglobin 17.4 g/dL (12.9-16.9); Immature Granulocytes % 0.7 % (0-4); Lymphocytes # 1.7 K/mcL (0.6-4.6); Lymphocytes % 23.9 %; Mean Corpuscular HGB Conc 34.7 g/dL (31.6-35.5); Mean Corpuscular Hemoglobin 30.7 pg (28.0-33.3); Mean Corpuscular Volume 88.4 fL (83.0-100.0); Mean Platelet Volume 9.9 fL (9.4-12.4); Monocytes # 0.7 K/mcL (0.0-1.3); Monocytes % 9.2 %; Neutrophils # 4.5 K/mcL (1.6-8.9); Platelet Count 194 K/mcL (140-400); Red Blood Count 5.67 M/mcL (4.19-5.50); Red Cell Distribution Width 13.2 % (11.5-14.5); Segmented Neutrophils % 62.9 %; White Blood Count 7.2 K/mcL (4.3-11.1)
[2020-10-13 16:05] LABS: Amphetamine Screen,Urine Negative ng/mL (Cutoff=1000); Barbiturate Screen,Urine Negative ng/mL (Cutoff=200); Benzodiazepines Screen,Urine Negative ng/mL (Cutoff=200); Cannabinoid Screen,Urine Positive ng/mL (Cutoff = 50); Cocaine Screen,Urine Negative ng/mL (Cutoff= 300); Opiate Screen,Urine Negative ng/mL (Cutoff=300); Phencyclidine Screen,Urine Negative ng/mL (Cutoff=25)
[2020-10-13 16:26] LABS: Acetaminophen < 10 mcg/mL (10-20); Alanine Aminotransferase 15 Units/L (7-52); Albumin 4.1 g/dL (3.5-5.7); Albumin/Globulin Ratio 1.3 (1.1-2.2); Alkaline Phosphatase 82 Units/L (34-104); Aspartate Amino Transferase 16 Units/L (13-39); BUN/Creatinine Ratio 6 (6-26); Bilirubin,Direct 0.1 mg/dL (0.0-0.2); Bilirubin,Indirect 0.5 mg/dL (0.0-1.0); Bilirubin,Total 0.6 mg/dL (0.3-1.0); Blood Urea Nitrogen 6 mg/dL (6-20); Calcium 8.9 mg/dL (8.6-10.3); Carbon Dioxide 22 mEq/L (23-29); Chloride 105 mEq/L (98-107); Ethanol < 10 mg/dL (Less than 10); Globulin 3.1 g/dL (2.4-3.5); Glucose 89 mg/dL (70-105); Osmolality,Calculated 283 (280-300); Salicylate < 2.5 mg/dL (15.0-30.0); Sodium 138 mEq/L (136-145); Total Protein 7.2 g/dL (6.4-8.9); eGFR For African Americans > 60 (> 60); eGFR For Non-African Americans > 60 (> 60)
[2020-10-13 16:38] LABS: Thyroid Stimulating Hormone 3.731 mcIU/mL (0.340-5.600)
[2020-10-13 17:40] LABS: Adenovirus Not Detected (Not Detect); Bordetella Pertussis Not Detected (Not Detect); Chlamydophila pneumoniae Not Detected (Not Detect); Coronavirus 229E Not Detected (Not Detect); Coronavirus HKU1 Not Detected (Not Detect); Coronavirus NL63 Not Detected (Not Detect); Coronavirus OC43 Not Detected (Not Detect); Human Metapneumovirus Not Detected (Not Detect); Human Rhinovirus/Enterovirus Not Detected (Not Detect); Influenza A Subtype 2009 H1 Not Detected (Not Detect); Influenza B Not Detected (Not Detect); Mycoplasma pneumoniae Not Detected (Not Detect); Parainfluenza Virus 1 Not Detected (Not Detect); Parainfluenza Virus 2 Not Detected (Not Detect); Parainfluenza Virus 3 Not Detected (Not Detect); Parainfluenza Virus 4 Not Detected (Not Detect); Respiratory Syncytial Virus Not Detected (Not Detect); SARS-CoV-2 Not Detected (Not Detect)
[2020-10-13] MEDS ORDERED: QUEtiapine Fumarate 25 MG TABLET PO PRN (17:56)
[2020-10-13] MEDS ORDERED: hydrOXYzine pamoate 25 MG CAPSULE PO PRN ×2 (17:56→18:04)
[2020-10-13] MEDS ORDERED: Haloperidol Lactate 5 MG/ML VIAL IM PRN (17:56)
[2020-10-13] MEDS ORDERED: traZODone 50 MG TABLET PO PRN ×2 (17:56→18:04)
[2020-10-13] MEDS ORDERED: Mag Hydrox/Al Hydrox/Simeth 30 ML UDC PO PRN (17:56)
[2020-10-13] MEDS ORDERED: *HR* LORazepam 2 MG/ML VIAL IM PRN (17:56)
[2020-10-13] MEDS ORDERED: Ibuprofen 400 MG TABLET PO PRN (17:56)
[2020-10-13] MEDS ORDERED: MOM Conc 10 ML UD.LIQ PO PRN (17:56)
[2020-10-13] MEDS: risperiDONE 0.25 MG TABLET PO SCH (21:48)
[2020-10-13] MEDS: carvediloL 6.25 MG TABLET PO SCH (21:49)
[2020-10-13] MEDS: Gabapentin 300 MG CAPSULE PO SCH (21:51)
[2020-10-14] MEDS: carvediloL 6.25 MG TABLET PO SCH ×2 (08:16→18:16)
[2020-10-14] MEDS: Gabapentin 300 MG CAPSULE PO SCH ×2 (08:18→21:15)
[2020-10-14] MEDS: risperiDONE 0.25 MG TABLET PO SCH ×2 (08:19→21:15)
[2020-10-14] MEDS: Nicotine 21 MG PATCH.TD24 TD SCH (08:25)
[2020-10-14] MEDS: Fluticasone Propionate Nasal 50 MCG/SPRAY BOTTLE NS SCH (08:26)
[2020-10-14] MEDS: haloperidoL 5 MG TABLET PO PRN (13:21)
[2020-10-14] MEDS: *HR* LORazepam 1 MG TABLET PO PRN (13:21)
[2020-10-14] MEDS ORDERED: Loratadine 10 MG TABLET PO PRN (14:56)
[2020-10-14] MEDS: CarBAMazepine XR (12 hr) 100 MG TAB PO SCH (18:15)
[2020-10-14] MEDS ORDERED: CARBAMAZEPINE 200 MG PO SCH (21:00)
[2020-10-14] MEDS: levETIRAcetam 250 MG TABLET PO SCH (21:14)
[2020-10-15] MEDS: risperiDONE 0.25 MG TABLET PO SCH ×2 (08:40→21:16)
[2020-10-15] MEDS: levETIRAcetam 250 MG TABLET PO SCH ×2 (08:40→21:16)
[2020-10-15] MEDS: Gabapentin 300 MG CAPSULE PO SCH ×2 (08:40→21:15)
[2020-10-15] MEDS: CarBAMazepine XR (12 hr) 100 MG TAB PO SCH ×2 (08:41→16:26)
[2020-10-15] MEDS: carvediloL 6.25 MG TABLET PO SCH ×2 (08:42→16:27)
[2020-10-15] MEDS: Nicotine 21 MG PATCH.TD24 TD SCH (08:50)
[2020-10-15] MEDS: Acetaminophen 325 MG TABLET PO PRN ×2 (12:42→21:16)
[2020-10-15] MEDS: *HR* LORazepam 1 MG TABLET PO PRN (15:36)
[2020-10-15] MEDS: haloperidoL 5 MG TABLET PO PRN (15:37)
[2020-10-15] MEDS: Fluticasone Propionate Nasal 50 MCG/SPRAY BOTTLE NS SCH (16:09)
[2020-10-16] MEDS: CarBAMazepine XR (12 hr) 100 MG TAB PO SCH (06:56)
[2020-10-16] MEDS: risperiDONE 0.25 MG TABLET PO SCH (08:27)
[2020-10-16] MEDS: Gabapentin 300 MG CAPSULE PO SCH (08:28)
[2020-10-16] MEDS: levETIRAcetam 250 MG TABLET PO SCH (08:29)
[2020-10-16] MEDS: Nicotine 21 MG PATCH.TD24 TD SCH (08:30)
[2020-10-16] MEDS: Fluticasone Propionate Nasal 50 MCG/SPRAY BOTTLE NS SCH (08:30)
[2020-10-16] MEDS: carvediloL 6.25 MG TABLET PO SCH (08:31)
[2020-10-16 09:07] VITALS: BP 126/85
[2020-10-16] MEDS ORDERED: Haloperidol Decanoate 50 MG/ML VIAL IM ONE (12:00)
== END 2020-10-16 14:30 | disposition home or self-care (01) | DRG 753 ==
LOC: EMEROOARM 15:19 → 1ANU 20:17
PROVIDERS: ADMIT Psychiatry & Neurology Forensic Psychiatry; ATTEND Psychiatry & Neurology Forensic Psychiatry

== ENCOUNTER 2021-07-21 13:36 | Inpatient (IN) ==
[2021-07-21 16:33] LABS: Influenza A PCR Negative (Negative); Influenza B PCR Negative (Negative); Resp. Syncytial Virus PCR Negative (Negative)
[2021-07-21 16:34] LABS: SARS-CoV-2 by PCR (In House) Negative (Negative)
[2021-07-21] MEDS ORDERED: *HR* LORazepam 1 MG TABLET PO PRN (17:39)
[2021-07-21] MEDS ORDERED: Haloperidol Lactate 5 MG/ML VIAL IM PRN (17:39)
[2021-07-21] MEDS ORDERED: QUEtiapine Fumarate 25 MG TABLET PO PRN (17:39)
[2021-07-21] MEDS ORDERED: *HR* LORazepam 2 MG/ML VIAL IM PRN (17:39)
[2021-07-21] MEDS ORDERED: haloperidoL 5 MG TABLET PO PRN (17:39)
[2021-07-21] MEDS ORDERED: Loratadine 10 MG TABLET PO PRN (18:17)
[2021-07-21] MEDS: traZODone 50 MG TABLET PO PRN (20:14)
[2021-07-21] MEDS: CarBAMazepine XR (12 hr) 100 MG TAB PO SCH (20:15)
[2021-07-21] MEDS: levETIRAcetam 250 MG TABLET PO SCH (20:15)
[2021-07-21] MEDS: Acetaminophen 325 MG TABLET PO PRN (20:15)
[2021-07-21] MEDS: hydrOXYzine pamoate 25 MG CAPSULE PO PRN (20:16)
[2021-07-21] MEDS: carvediloL 6.25 MG TABLET PO SCH (20:22)
[2021-07-22] MEDS: Ibuprofen 400 MG TABLET PO PRN ×3 (01:18→17:30)
[2021-07-22] MEDS: CarBAMazepine XR (12 hr) 100 MG TAB PO SCH ×2 (08:27→20:43)
[2021-07-22] MEDS: levETIRAcetam 250 MG TABLET PO SCH ×2 (08:28→20:45)
[2021-07-22] MEDS: carvediloL 6.25 MG TABLET PO SCH ×2 (08:28→16:29)
[2021-07-22] MEDS: Fluticasone Propionate Nasal 50 MCG/SPRAY BOTTLE NS SCH (08:31)
[2021-07-22] MEDS: hydrOXYzine pamoate 25 MG CAPSULE PO PRN ×2 (12:33→20:45)
[2021-07-22] MEDS ORDERED: QUEtiapine Fumarate 25 MG TABLET PO PRN (12:35)
[2021-07-22 20:06] VITALS: O2SAT 98
[2021-07-22] MEDS: traZODone 50 MG TABLET PO PRN (20:45)
[2021-07-23] MEDS: Acetaminophen 325 MG TABLET PO PRN (07:09)
[2021-07-23 07:45] VITALS: BP 123/78; PULSE 98; TEMP 97.6
[2021-07-23] MEDS: CarBAMazepine XR (12 hr) 100 MG TAB PO SCH (08:44)
[2021-07-23] MEDS: carvediloL 6.25 MG TABLET PO SCH (08:48)
[2021-07-23] MEDS: levETIRAcetam 250 MG TABLET PO SCH (08:49)
[2021-07-23] MEDS: Fluticasone Propionate Nasal 50 MCG/SPRAY BOTTLE NS SCH (08:55)
== END 2021-07-23 10:58 | disposition home or self-care (01) | DRG 751 ==
LOC: EMEROOARM 13:36 → 1ANU 17:51
PROVIDERS: ADMIT Psychiatry & Neurology Psychiatry; ATTEND Psychiatry & Neurology Psychiatry